=== PATIENT | female | born 1985 | race Caucasian/White ===

== ENCOUNTER 2019-02-11 16:25 | Inpatient (IN) | payer OTHER ==
[~2019-02-11] VITALS: Ht 157.5 cm; Wt 82.6 kg
[2019-02-18] MEDS ORDERED: OBSTETRIX DHA1 EACH PO (08:57)
[2019-02-20] MEDS ORDERED: OBSTETRIX DHA1 EACH PO (09:57)
== END 2019-02-20 10:45 | disposition home or self-care (01) | DRG 788 ==
LOC: OB/GYN 02-14 15:00 → LDR 02-17 06:18 → OB/GYN 02-17 20:54
PROVIDERS: ADMIT Obstetrics & Gynecology
PROC: 3E0P7VZ Introduction of Hormone into Female Reproductive, Via Natural or Artificial Opening (ICD-10-PCS; 2019-02-17)
PROC: 4A1HXCZ Monitoring of Products of Conception, Cardiac Rate, External Approach (ICD-10-PCS; 2019-02-17)
PROC: 10D00Z1 Extraction of Products of Conception, Low, Open Approach (ICD-10-PCS; principal; 2019-02-17 19:00)
DX: O82 Encounter for cesarean delivery without indication (principal); O61.0 Failed medical induction of labor; Z3A.40 40 weeks gestation of pregnancy; Z37.0 Single live birth